=== PATIENT | male | born 1945 | race Hispanic/Latino ===

== ENCOUNTER 2018-10-15 07:55 | Day surgery (SDC) | payer MEDICARE, BC ==
[2016-01-14 09:55] VITALS: BMI 29.5
--- NOTE | 2018-10-15 09:33 | CARD ---
APPROVED REPORT Date of service: 10/15/2018 EKG Measurement Heart [id number] AL [id number] <Conclusion> Normal sinus rhythm Possible Left atrial enlargement Left ventricular hypertrophy Abnormal ECG
[2018-10-15] MEDS ORDERED: Propofol 10 mg/ml Inj (20 ML) ONE (09:47)
[2018-10-15] MEDS ORDERED: Phenylephrine 10 mg/ml Inj ONE (09:50)
[2018-10-15] MEDS ORDERED: Sodium Chloride 0.9% 1,000 ML IV SCH (10:45)
[2018-10-15 10:46] VITALS: RESP 16
[2018-10-15 11:26] VITALS: BP 127/80; PULSE 71; TEMP 98; O2SAT 98
== END 2018-10-15 12:21 | disposition home or self-care (01) ==
LOC: ENDO 07:55
PROVIDERS: ATTEND Internal Medicine Gastroenterology
DX: Z12.11 Encounter for screening for malignant neoplasm of colon (principal); K63.5 Polyp of colon; K57.30 Diverticulosis of large intestine without perforation or abscess without bleeding; K64.8 Other hemorrhoids; K21.9 Gastro-esophageal reflux disease without esophagitis; I10 Essential (primary) hypertension
CPT/HCPCS: 45380; 88305; 93005; J2001; J2370; J2704; J7030; J7040